=== PATIENT | female | born 1945 | race Caucasian/White ===

== ENCOUNTER 2018-01-03 10:23 | Inpatient (IN) | payer MEDICARE, OTHER ==
[~2018-01-03] VITALS: Ht 165.1 cm; Wt 67.0 kg
[2018-01-03] MEDS ORDERED: TRAM50TA4 PO (10:40)
[2018-01-03] MEDS ORDERED: RISP1 PO (10:40)
[2018-01-03] MEDS ORDERED: PARO20TA24 PO (10:40)
[2018-01-03] MEDS ORDERED: DOCU250C91 PO (10:40)
[2018-01-03] MEDS ORDERED: LEVO150 PO (10:40)
[2018-01-03] MEDS ORDERED: SENN-175 PO (10:40)
[2018-01-03] MEDS ORDERED: ACET500C4 PO (10:40)
[2018-01-03] MEDS ORDERED: LORA10TA7 PO (10:40)
[2018-01-03] MEDS ORDERED: CALC1TAB93 PO (10:40)
[2018-01-03] MEDS ORDERED: ATEN25TA PO (10:40)
[2018-01-03] MEDS ORDERED: NYST30CR9 TP (10:40)
[2018-01-03 10:44] LABS: GLUCOSE,POINT OF CARE 171 MG/DL (70-110)
[2018-01-03] MEDS ORDERED: SODIUM CHLORIDE 0.9% 1,000 ML IV ONE (11:30)
[2018-01-03] MEDS ORDERED: DILTIAZEM HCL 5 MG/ML 5 ML VIAL IVP ONE (11:45)
[2018-01-03 12:26] LABS: BASOPHILS % (AUTO) 0.6 % (0.0-2.0); EOSINOPHILS % (AUTO) 0.2 % (1.0-6.0); HEMATOCRIT 39.8 % (36-46); HEMOGLOBIN 13.4 g/dL (12.0-16.0); LYMPHOCYTES # (AUTO) 0.9 K/uL (1.0-4.8); LYMPHOCYTES % (AUTO) 8.5 % (22.0-44.0); MEAN CORPUSCULAR HEMOGLOBIN 30.3 pg (26.0-34.0); MEAN CORPUSCULAR HGB CONC 33.7 G/dL (31.0-37.0); MEAN CORPUSCULAR VOLUME 90 fL (80-100); MONOCYTES # (AUTO) 0.7 K/uL (0.1-1.0); MONOCYTES % (AUTO) 7.4 % (2.0-9.0); NEUTROPHILS # (AUTO) 8.3 K/uL (1.8-7.7); NEUTROPHILS % (AUTO) 83.3 % (40.0-70.0); PLATELET COUNT (AUTO) 213 K/uL (150-450); RED BLOOD CELL COUNT(AUTO) 4.42 MIL/uL (4.00-5.20); RED CELL DISTRIBUTION WIDTH 13.9 % (11.5-14.5)
[2018-01-03 12:50] LABS: APPEARANCE,URINE CLOUDY (CLEAR); BILIRUBIN,URINE NEGATIVE (NEGATIVE); GLUCOSE, URINE (UA) NEGATIVE (NEGATIVE); KETONES,URINE TRACE mg/dL (NEGATIVE); LEUKOCYTE ESTERASE ,URINE NEGATIVE (NEGATIVE); NITRATE,URINE NEGATIVE (NEGATIVE); OCCULT BLOOD,URINE MODERATE (NEGATIVE); PROTEIN,URINE TRACE (NEGATIVE)
[2018-01-03 12:55] LABS: AMPHET/METH SCREEN,URINE NEGATIVE (NEGATIVE); BARBITURATE SCREEN, URINE NEGATIVE (NEGATIVE); BENZODIAZEPINES SCREEN,URINE NEGATIVE (NEGATIVE); CANNABINOID SCREEN,URINE NEGATIVE (NEGATIVE); COCAINE SCREEN,URINE NEGATIVE (NEGATIVE); METHADONE SCREEN, URINE NEGATIVE (NEGATIVE); OPIATE SCREEN,URINE POSITIVE (NEGATIVE)
[2018-01-03 13:02] LABS: PHENCYCLIDINE SCREEN,URINE NEGATIVE (NEGATIVE)
[2018-01-03 13:06] LABS: AMORPHOUS SEDIMENT,UR Moderate /LPF (None Seen); BACTERIA,URINE Few /HPF (None Seen); SQUAMOUS EPITHELIAL CELL,UR Few /LPF (None Seen); WBC,URINE 0-2 /HPF (0-5)
[2018-01-03 13:25] LABS: CALCIUM, TOTAL 9.3 mg/dL (8.8-10.5); CREATININE 0.93 mg/dL (0.60-1.30); POTASSIUM 3.7 mmol/L (3.5-5.1)
[2018-01-03 13:31] LABS: ALBUMIN 3.3 g/dL (3.4-5.0); BILIRUBIN,TOTAL 0.5 mg/dL (0.1-1.0)
[2018-01-03] MEDS ORDERED: ONDANSETRON HCL 4 MG/2 ML VIAL IVP PRN ×2 (13:45→22:15)
[2018-01-03] MEDS ORDERED: ACETAMINOPHEN 325 MG TABLET PO PRN ×2 (13:45→22:15)
[2018-01-03] MEDS ORDERED: DIGOXIN 250 MCG/ML 2 ML AMP IVP ONE (17:00)
[2018-01-03 17:03] VITALS: BP 128/79
[2018-01-03] MEDS ORDERED: AMIODARONE HCL 150 MG in DEXTROSE 5%-WATER 97 ML IV ONE (17:25)
[2018-01-03] MEDS ORDERED: AMIODARONE HCL 360 MG in DEXTROSE 5%-WATER 242.8 ML IV ONE (17:35)
[2018-01-03 19:49] VITALS: BP 136/68
[2018-01-03] MEDS: APIXABAN 5 MG TABLET PO SCH (20:26)
[2018-01-03] MEDS ORDERED: DOCUSATE SODIUM 250 MG CAPSULE PO SCH (22:15)
[2018-01-03] MEDS ORDERED: TraMADol HCL 50 MG TABLET PO SCH (22:15)
[2018-01-03] MEDS ORDERED: ZOLPIDEM TARTRATE 5 MG TABLET PO PRN (22:15)
[2018-01-03] MEDS ORDERED: [UNRECOGNIZED DRUG - OTHER] PO SCH (22:15)
[2018-01-03] MEDS ORDERED: 0.9% SODIUM CHLORIDE 10 ML SYRINGE IVP PRN (22:15)
[2018-01-03 22:49] LABS: THYROID STIMULATING HORMONE 3.13 uIU/mL (0.36-3.74)
[2018-01-03] MEDS ORDERED: AMIODARONE HCL 540 MG in DEXTROSE 5%-WATER 239.2 ML IV ONE (23:35)
[2018-01-03] MEDS: NYSTATIN 30 GM CREAM TP SCH (23:43)
[2018-01-03] MEDS: DOCUSATE SODIUM 100 MG CAPSULE PO SCH (23:43)
[2018-01-03] MEDS: RisperiDONE 1 MG TABLET PO SCH (23:43)
[2018-01-04] VITALS (7 sets, daily range): BP systolic 103–147; BP diastolic 50–90
[2018-01-04] MEDS ORDERED: HEPARIN SODIUM,PORCINE 5,000 UNITS/ML VIAL SQ SCH ×2
[2018-01-04] MEDS ORDERED: PNEUMOCOCCAL VACCINE POLYVALENT 0.5 ML VIAL [PPSV23] IM ONE (00:15)
[2018-01-04] MEDS ORDERED: METOPROLOL TARTRATE 5 MG/5 ML VIAL IVP PRN (00:15)
[2018-01-04] MEDS: LEVOTHYROXINE SODIUM 50 MCG TABLET PO SCH (06:21)
[2018-01-04 07:07] LABS: BASOPHILS % (AUTO) 0.1 % (0.0-2.0); EOSINOPHILS % (AUTO) 0.7 % (1.0-6.0); LYMPHOCYTES # (AUTO) 0.8 K/uL (1.0-4.8); LYMPHOCYTES % (AUTO) 11.1 % (22.0-44.0); MEAN CORPUSCULAR HEMOGLOBIN 30.1 pg (26.0-34.0); MEAN CORPUSCULAR HGB CONC 33.4 G/dL (31.0-37.0); MEAN CORPUSCULAR VOLUME 90 fL (80-100); MONOCYTES # (AUTO) 0.4 K/uL (0.1-1.0); MONOCYTES % (AUTO) 6.3 % (2.0-9.0); NEUTROPHILS # (AUTO) 5.8 K/uL (1.8-7.7); NEUTROPHILS % (AUTO) 81.8 % (40.0-70.0); PLATELET COUNT (AUTO) 169 K/uL (150-450)
[2018-01-04 07:24] LABS: ANION GAP 10 mmol/L (8-16); CALCIUM, TOTAL 8.2 mg/dL (8.8-10.5); CARBON DIOXIDE 26 mmol/L (22-29); CHLORIDE 105 mmol/L (98-107); CREATININE 0.78 mg/dL (0.60-1.30); GLOMERULAR FILTR. RATE CALC > 60 mL/min (>60); GLUCOSE,RANDOM 240 mg/dL (70-110); POTASSIUM 3.5 mmol/L (3.5-5.1); SODIUM SERUM 141 mmol/L (136-145); UREA NITROGEN, BLOOD 10 mg/dL (7-18)
[2018-01-04 08:34] LABS: APPEARANCE,URINE CLEAR (CLEAR); BILIRUBIN,URINE NEGATIVE (NEGATIVE); GLUCOSE, URINE (UA) NEGATIVE (NEGATIVE); KETONES,URINE TRACE mg/dL (NEGATIVE); LEUKOCYTE ESTERASE ,URINE SMALL (NEGATIVE); NITRATE,URINE NEGATIVE (NEGATIVE); OCCULT BLOOD,URINE LARGE (NEGATIVE); PROTEIN,URINE NEGATIVE (NEGATIVE)
[2018-01-04 09:14] LABS: BACTERIA,URINE Few /HPF (None Seen); SQUAMOUS EPITHELIAL CELL,UR Few /LPF (None Seen)
[2018-01-04] MEDS: DOCUSATE SODIUM 100 MG CAPSULE PO SCH ×2 (09:26→20:14)
[2018-01-04] MEDS: LORATADINE 10 MG TABLET PO SCH (09:26)
[2018-01-04] MEDS: APIXABAN 5 MG TABLET PO SCH ×2 (09:27→20:14)
[2018-01-04] MEDS: ATENOLOL 25 MG TABLET PO SCH (09:27)
[2018-01-04] MEDS: PANTOPRAZOLE SODIUM 40 MG/VIAL IVP SCH (09:27)
[2018-01-04] MEDS: PARoxetine HCL 20 MG TABLET PO SCH (09:27)
[2018-01-04] MEDS: NYSTATIN 30 GM CREAM TP SCH ×2 (09:28→20:14)
[2018-01-04] MEDS ORDERED: LEVO175T9 PO (11:03)
[2018-01-04] MEDS ORDERED: AMIODARONE HCL 750 MG in DEXTROSE 5%-WATER 485 ML IV SCH (17:35)
[2018-01-04] MEDS: RisperiDONE 1 MG TABLET PO SCH (20:14)
[2018-01-05 04:20] VITALS: BP 125/90
[2018-01-05] MEDS: LEVOTHYROXINE SODIUM 50 MCG TABLET PO SCH (05:54)
[2018-01-05 07:34] VITALS: BP 145/82
[2018-01-05] MEDS: ATENOLOL 25 MG TABLET PO SCH (08:11)
[2018-01-05] MEDS: PANTOPRAZOLE SODIUM 40 MG/VIAL IVP SCH (08:11)
[2018-01-05] MEDS: DOCUSATE SODIUM 100 MG CAPSULE PO SCH ×2 (08:11→20:38)
[2018-01-05] MEDS: LORATADINE 10 MG TABLET PO SCH (08:11)
[2018-01-05] MEDS: APIXABAN 5 MG TABLET PO SCH ×2 (08:11→20:38)
[2018-01-05] MEDS: NYSTATIN 30 GM CREAM TP SCH ×2 (08:12→20:38)
[2018-01-05] MEDS: PARoxetine HCL 20 MG TABLET PO SCH (08:12)
[2018-01-05 11:09] VITALS: BP 129/84
[2018-01-05] MEDS: AMIODARONE HCL 200 MG TABLET PO SCH ×2 (12:53→20:38)
[2018-01-05 15:20] VITALS: BP 118/56
[2018-01-05 19:59] VITALS: BP 145/93
[2018-01-05] MEDS: RisperiDONE 1 MG TABLET PO SCH (20:38)
[2018-01-06 00:01] VITALS: BP 140/99
[2018-01-06 04:10] VITALS: BP 150/66
[2018-01-06] MEDS: LEVOTHYROXINE SODIUM 50 MCG TABLET PO SCH (05:34)
[2018-01-06 08:04] VITALS: BP 156/78
[2018-01-06] MEDS: PANTOPRAZOLE SODIUM 40 MG/VIAL IVP SCH (08:25)
[2018-01-06] MEDS: LORATADINE 10 MG TABLET PO SCH (08:25)
[2018-01-06] MEDS: APIXABAN 5 MG TABLET PO SCH (08:25)
[2018-01-06] MEDS: DOCUSATE SODIUM 100 MG CAPSULE PO SCH (08:25)
[2018-01-06] MEDS: ATENOLOL 25 MG TABLET PO SCH (08:25)
[2018-01-06] MEDS: AMIODARONE HCL 200 MG TABLET PO SCH (08:26)
[2018-01-06] MEDS: PARoxetine HCL 20 MG TABLET PO SCH (08:26)
[2018-01-06] MEDS: NYSTATIN 30 GM CREAM TP SCH (08:26)
[2018-01-06 11:19] VITALS: BP 132/107
[2018-01-06] MEDS ORDERED: AMIO200T44 PO (14:19)
[2018-01-06] MEDS ORDERED: APIX5TAB PO (14:20)
[2018-01-06] MEDS ORDERED: NYST30CR9 TP (14:21)
[2018-01-06 15:00] VITALS: BP 125/83
== END 2018-01-06 16:15 | DRG 310 ==
LOC: EMS 10:24 → 5N 15:52
PROVIDERS: ADMIT Internal Medicine; ATTEND Internal Medicine
PROC: 3E0234Z Introduction of Serum, Toxoid and Vaccine into Muscle, Percutaneous Approach (ICD-10-PCS; principal; 2018-01-04)
DX: I48.91 Unspecified atrial fibrillation (principal); F70 Mild intellectual disabilities; E03.9 Hypothyroidism, unspecified; E86.0 Dehydration; F32.9 Major depressive disorder, single episode, unspecified; I10 Essential (primary) hypertension; I48.92 Unspecified atrial flutter; Z79.899 Other long term (current) drug therapy; Z23 Encounter for immunization
CPT/HCPCS: 51701; 70450; 83735; 84443; 87086; 90471; 93005; 93306; 96374; 99291; C9113; J0282; J1160; J3490; J7030; J7060